=== PATIENT | male | born 1995 | race Caucasian/White ===

== ENCOUNTER 2023-01-11 14:20 | Emergency (ER) | payer OTHER ==
--- NOTE | 2023-01-11 15:29 | ED Physician Documentation ---
History of Present Illness - Stated complaint Stated Complaint: L ARM AND FACE NUMBNESS - Chief complaint Chief Complaint: General - Additonal information Additional information: 27-year-old male presents emergency department for evaluation of left arm and facial numbness. States that intermittently for the last week he has noticed some numbness in his cheek. Yesterday he began noticing some numbness in his left elbow and small finger. He states that he has become paranoid that he is going to . He has no SI or HI. No hallucinations. He does have a longstanding history of anxiety for which she is not medicated. Endpoint he d enies chest pain, shortness of air slurred speech, headache, facial droop arm or leg weakness. No falls or trauma. No fevers. No nausea or vomiting. No abdominal pain. He does report that his is out of town this week which she thinks may be contributing to the anxiety but is uncertain.. He is a non-smoker. No history of hypertension. Takes no prescribed medications. Review of Systems Constitutional: denies: Fever, Chills Eyes: denies: Loss of vision, Decreased vision, Photophobia, Discharge Ears: reports: Reviewed and negative Throat: reports: Reviewed and negative Cardiac: reports: Reviewed and negative Respiratory: reports: Reviewed and negative GI: reports: Reviewed and negative : reports: Reviewed and negative Skin: denies: Rash, Lesions, Abrasion (s) Musculoskeletal: denies: Neck pain, Back pain Neurologic: reports: Numbness. denies: Generalized weakness, Focal weakness, Difficulty speaking, Seizure, Headache, Head injury, LOC PD PAST MEDICAL HISTORY - Past Medical History Past Medical History: No Cardiovascular: None Respiratory: None Neuro: None Endocrine/Autoimmune: None GI: None : None HEENT: None Psych: None Musculoskeletal: None Derm: None - Past Surgical History Past Surgical History: No - Present Medications Home Medications: Ambulatory Orders Medication Instructions Recorded Confirmed No Known Home Medications 01/11/23 01/11/23 - Allergies Allergies/Adverse Reactions: Allergies Allergy/AdvReac Type Severity Reaction Status Date / Time No Known Drug Allergies Allergy Verified 01/11/23 14:29 - Social History Does the pt smoke?: No Smoking Status: Never smoker Does the pt drink ETOH?: Yes Does the pt have substance abuse?: No - Immunizations Immunizations are current?: Yes - POLST Patient has POLST: No PD ED PE NORMAL - General General: Alert and oriented X 3, No acute distress, Well developed/nourished - HEENT HEENT: Atraumatic, Ears normal, Moist mucous membranes, Pharynx benign - Neck Neck: Supple, no meningeal sign, No adenopathy, No JVD - Cardiac Cardiac: RRR, No murmur, No gallop, No rub, Strong equal pulses - Respiratory Respiratory: No respiratory distress, Clear bilaterally - Abdomen Abdomen: Normal bowel sounds, Soft, Non tender - Back Back: No CVA TTP - Derm Derm: Normal color, Warm and dry - Extremities Extremities: No deformity, No tenderness to palpate, Normal ROM s pain, Other (Positive Phalen's left hand) - Neuro Neuro: Alert and oriented X 3, 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, No motor deficit, No sensory deficit, Normal speech Eye Opening: Spontaneous Motor: Obeys Commands Verbal: Oriented GCS Score: 15 Results - Vitals Vitals: Vital Signs - 24 hr 01/11/23 01/11/23 01/11/23 14:24 14:45 14:58 Temperature 37.0 C Heart Rate 118 H 67 Respiratory 16 16 16 Rate Blood Pressure 123/86 H O2 Saturation 97 99 01/11/23 15:57 Temperature Heart Rate 91 Respiratory 16 Rate Blood Pressure O2 Saturation 98 Oxygen O2 Source Room air - Labs Labs: Laboratory Tests 01/11/23 01/11/23 01/11/23 15:33 15:33 15:33 WBC 6.3 RBC 4.79 Hgb 15.1 Hct 43.5 MCV 90.8 MCH 31.5 H MCHC 34.7 RDW 11.0 L Plt Count 206 MPV 10.6 Neut # (Auto) 4.5 Lymph # (Auto) 1.1 L Whitman # (Auto) 0.5 Eos # (Auto) 0.0 Baso # (Auto) 0.0 Absolute Nucleated RBC 0.00 Nucleated RBC % 0.0 Sodium 139 Potassium 3.8 Chloride 103 Carbon Dioxide 28 Anion Gap 8.0 BUN 12 Creatinine 0.9 Estimated GFR (MDRD) 103 Glucose 96 Calcium 9.8 Total Bilirubin 1.1 H AST 17 ALT 18 Alkaline Phosphatase 43 Total Protein 7.2 Albumin 4.8 Globulin 2.4 Albumin/Globulin Ratio 2.0 Lipase 30 TSH 0.67 - Rads (name of study) CT head Relevant Findings:: Final report received (No acute intracranial abnormality) PD Medical Decision Making - ED course Complexity details: reviewed results, re-evaluated patient, considered differential, d/w patient ED course: 27-year-old Male presents emergency department for evaluation of numbness in his left small finger for 3 days. In point patient denies slurred speech, facial droop or focal weakness in his arms or legs. He is denying chest pain or shortness of air. Takes no prescribed medications. Here in the emergency department a CBC and electrolytes and TSH as interpreted by myself are unremarkable for acute findings. Clinically his neurological and cerebellar exam were unremarkable. He did not have facial numbness at the time of my exam. A CT of the head was unremarkable as interpreted by radiologist. Given age and lack of other risk factors I am not suspicious for carotid dissection. The numbness in the left hand is isolated to the small finger. He does have a Phalen's exam reports a history of santosh as well as daily keyboard usage. As such I suspect that that numbness is likely early carpal tunnel. I have made the recommendation to use ibuprofen for analgesia and inflammation. Patient will follow closely with his PCP for longer-term evaluation. We discussed the possibility that anxiety is driving his symptoms. But deferred administration of any medications today. Departure - Departure Disposition: 01 Home, Self Care Clinical Impression: Finger numbness Condition: Stable Record reviewed to determine appropriate education?: Yes Comments: Chuck you are seen today in the emergency department because you have begun to have some intermittent numbness of your left cheek as well as your left small finger. As we discussed at the bedside your Phalen's test was positive which is a test to check for carpal syndrome. You do tell me that you keyboard a lot and this can cause some inflammation of the nerves that run from the elbow into the wrist and hand. I do recommend they take 600 of Motrin with food 2-3 times a day. Here in the emergency department your neurological and cerebellar exam are entirely normal. Your screening labs including a CBC, electrolytes and thyroid are also normal. With your age and history is exceedingly unlikely that this is due to a stroke. I do suspect that there may be a component of anxiety driving the symptoms and I encourage you to follow closely with your primary care provider. Return to the ER if you develop any facial droop, have slurred speech, focal weakness in your arms or legs or have severe chest pain or any inability to breathe
[2023-01-11 15:38] LABS: BASOPHILS % (AUTO) 0.3 %; EOSINOPHILS % (AUTO) 0.5 %; HCT - HEMATOCRIT 43.5 % (42.0-52.0); HGB - HEMOGLOBIN 15.1 g/dL (14.0-18.0); LYMPHOCYTES # (AUTO) 1.1 10^3/uL (1.5-3.5); LYMPHOCYTES % (AUTO) 18.2 %; MEAN CORPUSCULAR HEMOGLOBIN 31.5 pg (27.0-31.0); MEAN CORPUSCULAR HGB CONC 34.7 g/dL (32.0-36.0); MEAN CORPUSCULAR VOLUME 90.8 fL (80.0-94.0); MEAN PLATELET VOLUME 10.6 fL (7.4-11.4); MONOCYTES # (AUTO) 0.5 10^3/uL (0.0-1.0); MONOCYTES % (AUTO) 8.4 %; NEUTROPHILS # (AUTO) 4.5 10^3/uL (1.5-6.6); NEUTROPHILS % (AUTO) 72.3 %; PLT - PLATELET COUNT 206 10^3/uL (130-450); RED BLOOD COUNT 4.79 10^6/uL (4.70-6.10); WHITE BLOOD COUNT 6.3 x10^3/uL (4.8-10.8)
[2023-01-11 15:53] LABS: ALBUMIN 4.8 g/dL (3.2-5.5); BILIRUBIN,TOTAL 1.1 mg/dL (0.2-1.0); CALCIUM 9.8 mg/dL (8.5-10.3); CREATININE 0.9 mg/dL (0.6-1.2); POTASSIUM 3.8 mmol/L (3.5-5.0); TOTAL PROTEIN 7.2 g/dL (6.7-8.2)
--- NOTE | 2023-01-11 16:07 | CT Report ---
PROCEDURE: HEAD WO INDICATIONS: left facial numbness TECHNIQUE: Noncontrast 4.5 mm thick angled axial sections acquired from the foramen magnum to the vertex. For r adiation dose reduction, the following was used: automated exposure control, adjustment of mA and/or kV according to patient size. COMPARISON: None. FINDINGS: Image quality: Excellent. CSF spaces: Basal cisterns are patent. No extra-axial fluid collections. Ventricles are normal in size and shape. Brain: No midline shift. No intracranial masses or hemorrhage. Guaman-white matter interface is norm al. Skull and face: Calvarium and visualized facial bones are intact, without suspicious lesions. Sinuses: Visualized sinuses and mastoids are clear. IMPRESSION: No acute intracranial abnormality. Reviewed by: Mikey Cartwright MD on 01/11/2023 4:06 PM PST Approved by: Mikey Cartwright MD on 01/11/2023 4:06 PM [facility] Station ID: [id number]
[2023-01-11 16:29] VITALS: BP 129/82
== END 2023-01-11 16:28 | disposition home or self-care (01) ==
LOC: ED 14:20
DX: R20.0 Anesthesia of skin (principal)
CPT/HCPCS: 36415; 80053; 83690; 84443; 85025; 99284